=== PATIENT | male | born 1955 | race Hispanic/Latino ===

== ENCOUNTER → 2018-04-09 | Outpatient (CLI) | payer MEDICARE | END | disposition home or self-care (01) | LOC: RAH 13:49 | PROVIDERS: ATTEND Family Medicine | DX: N43.3 Hydrocele, unspecified (principal); K40.90 Unilateral inguinal hernia, without obstruction or gangrene, not specified as recurrent | CPT/HCPCS: 76870 ==

== ENCOUNTER → 2024-10-18 | Outpatient (CLI) | payer MEDICARE ==
--- NOTE | 2024-10-18 10:54 | HMCIMG ---
ULTRASOUND ABDOMEN COMPLETE ULTRASOUND ABDOMEN VASCULAR INDICATION: Primary biliary cirrhosis COMPARISON: None TECHNIQUE: Grayscale and color Doppler imaging, including spectral waveform analysis, acquired earlier through the intrahepatic and intrahepatic circulation, and images subsequently made available for review. FINDINGS: The liver is normal in size and echogenicity; no focal lesion demonstrated. The common bile duct caliber measures 3.0 mm. No evidence for calculi, sludge or pericholecystic fluid. No sonographic Owen's sign elicited by the ultrasound wireline field operator. Wall thickness measures 1.0 mm. The spleen is slightly enlarged, but normal in echotexture. The spleen measures 14.0 cm. Visible portions of the pancreas appear unremarkable. The right kidney measures 11.7 x 6.6 x 4.9 cm,and is normal in echogenicity, without evidence for hydronephrosis or shadowing stones. The left kidney measures 11.8 x 5.6 x 5.7 cm,and is normal in echogenicity, without evidence for hydronephrosis or shadowing stones. Visible portions of the abdominal aorta are within normal limits. Visible portions of the inferior vena cava are within normal limits. No free fluid demonstrated. VASCULAR: Velocities in centimeters/sec. Hepatopedal flow identified within the main portal vein. Portal vein diameter = 11.0 mm. Portal vein velocity = 23. No evidence for portal vein thrombosis. Left hepatic vein = 26, middle hepatic vein = 30, and right hepatic vein = 45. Hepatofugal flow detected within the hepatic veins. Hepatopedal flow is present within the hepatic artery. Velocity = 77. RI = 0.74. Normal spectral waveforms associated. Splenic vein is patent with velocity of 39. IMPRESSION: Normal direction of intrahepatic and extrahepatic vascular flow. Mild splenic enlargement.
== END | disposition home or self-care (01) ==
LOC: RAH 07:58
PROVIDERS: ATTEND Internal Medicine Gastroenterology
DX: R16.1 Splenomegaly, not elsewhere classified (principal); K74.3 Primary biliary cirrhosis
CPT/HCPCS: 76700; 93975